=== PATIENT | male | born 1930 | race Caucasian/White ===

== ENCOUNTER 2016-10-05 03:25 | Emergency (ER) | payer OTHER, MEDICARE ==
[~2016-10-05] VITALS: Ht 172.7 cm; Wt 63.5 kg
[2016-10-05] MEDS ORDERED: COREG3.125 MG PO (03:38)
[2016-10-05] MEDS ORDERED: ASPIR LOW81 MG PO (03:38)
[2016-10-05] MEDS ORDERED: LASIX40 MG PO (03:38)
[2016-10-05] MEDS ORDERED: PROTONIX40 MG PO (03:39)
[2016-10-05] MEDS ORDERED: PRAVASTATIN SOD10 MG PO (03:39)
[2016-10-05] MEDS ORDERED: LISINOPRIL5 MG PO (03:39)
[2016-10-05] MEDS ORDERED: ALDACTONE25 MG PO (03:40)
[2016-10-05] MEDS ORDERED: OXYGEN NAS (03:41)
[2016-10-05] MEDS ORDERED: COUMADIN5 M2 PO (03:41)
[2016-10-05 03:59] LABS: HEMATOCRIT 40.3 % (42.0-52.0); HEMOGLOBIN 12.2 g/dl (14.0-18.0); MEAN CELL VOLUME 80.3 fl (80.0-94.0); MEAN CORPUSCULAR HGB 24.3 pg (27.0-31.0); MEAN CORPUSCULAR HGB CONC 30.3 g/dl (33.0-37.0); MEAN PLATELET VOLUME 11.1 fl (9.6-12.3); PLATELET COUNT AUTOMATED 500 10*3/uL (130-400); RED BLOOD COUNT 5.02 10*6/uL (4.50-5.90); RED CELL DISTRI WIDTH 20.7 % (0-14.5); WHITE BLOOD COUNT 25.5 10*3/uL (4.8-10.8)
[2016-10-05 04:09] LABS: INTERNATIONAL NORM RATIO 1.7 (2.0-3.5); PROTHROMBIN TIME 18.1 SECONDS (9.0-12.4)
[2016-10-05 04:11] LABS: BUN 26 mg/dl (7-24); CARBON DIOXIDE 26 mmol/L (21-32); CHLORIDE 107 mmol/L (98-107); EST GLOM FILT AFRICAN AMERICAN > 60 ml/min; GLUCOSE 162 mg/dL (65-99); POTASSIUM 2.9 mmol/L (3.5-5.1); SODIUM 147 mmol/L (136-145)
[2016-10-05 04:18] LABS: ABG CO2 CONTENT 25.8 mmol/L (23-27); ABG HCO3 24.5 mmol/l (22-26); ABG TEMPERATURE 98.6 F (98.0-99.0); ARTERIAL BLOOD GAS PH 7.388 (7.35-7.45)
[2016-10-05 04:25] LABS: EOSINOPHIL # 0.3 10*3/uL (0-0.4); EOSINOPHILS 1 % (1-4); LYMPHOCYTE # 1.5 10*3/uL (1.3-4.4); MONOCYTE # 0.3 10*3/uL (0.1-1.0); NEUTROPHIL # 23.5 10*3/uL (2.3-7.9); NEUTROPHILS 92 % (47-73); PLATELET SUFFICIENCY HIGH (NORMAL); POLYCHROMASIA SLIGHT; TOTAL CELLS COUNTED 100 #CELLS
[2016-10-05 04:26] LABS: BURR CELLS FEW
== END 2016-10-05 06:37 | disposition expired ==
LOC: ED 03:25
PROVIDERS: Emergency Medicine
DX: K92.2 Gastrointestinal hemorrhage, unspecified (principal); J96.10 Chronic respiratory failure, unspecified whether with hypoxia or hypercapnia; R00.0 Tachycardia, unspecified; J44.1 Chronic obstructive pulmonary disease with (acute) exacerbation; R55 Syncope and collapse; R11.10 Vomiting, unspecified; F17.200 Nicotine dependence, unspecified, uncomplicated; Z79.82 Long term (current) use of aspirin; Z79.01 Long term (current) use of anticoagulants